=== PATIENT | female | born 1990 | race Caucasian/White ===

== ENCOUNTER 2020-06-01 17:16 | Emergency (ER) | payer SELFPAY ==
[~2020-06-01] VITALS: Ht 147.3 cm; Wt 52.2 kg
[2020-06-01] MEDS ORDERED: ONDANSETRON HCL INJ 2MG/ML 2ML 2 MG/ML VIAL IV STA (18:44)
[2020-06-01] MEDS ORDERED: PANTOPRAZOLE 40 MG 10ML VIAL IV STA (18:44)
[2020-06-01] MEDS ORDERED: SODIUM CHLORIDE 0.9% 1000ML 1,000 ML IV ONE (18:45)
--- NOTE | 2020-06-01 18:50 | Emergency Department Note ---
History of Present Illnes History of Present Illness Chief Complaint: Abdominal Complaints History of Present Illness This is a 30 year old female presents with c/o nausea, burping a lot, 2 episodes of diarrhea and headache starting about 3 hours ago, at this time states only symptoms still present is the burping, nausea, and upset stomach sensation. Historian: Patient Arrival Mode: Car Additional Treatment [employer]: [employer] Bath Attendant Required: No Onset (how long ago): hour(s) (3) Location: abd Quality: belching, diarrhea and vomiting Radiation: Reports non-radiation Severity: mild Onset quality: sudden Duration (how long): hour(s) (3) Progression: partially resolved Chronicity: new Context: Denies recent illness, Denies recent surgery, Denies trauma/injury Relieving factors: none Exacerbating factors: none Associated symptoms: Reports denies other symptoms Treatments prior to arrival: none Past Medical/Family History Physician Review I have reviewed the patient's past medical and family history. Any updates have been documented here. Past Medical History Recent Fever: No Clinical Suspicion of Infectio: No New/Unexplained Change in Ment: No Past Medical History: None Past Surgical History: None Social History Smoking Cessation: Never Smoker Alcohol Use: None Any Illegal Drug Use: No Family History Family history of heart diseas: No Review of Systems Review of Systems Constitutional: Reports no symptoms EENTM: Reports no symptoms Cardiovascular: Reports no symptoms Respiratory: Reports no symptoms Gastrointestinal: Reports as per HPI Genitourinary: Reports no symptoms Musculoskeletal: Reports no symptoms Integumentary: Reports no symptoms Psychological: Reports no symptoms Endocrine: Reports no symptoms Hematological/Lymphatic: Reports no symptoms Physical Exam Related Data Allergies: Coded Allergies: No Known Allergies (Unverified , 06/01/20) Triage Vital Signs Vital Signs Date Time Temp Pulse Resp B/P (MAP) Pulse Ox O2 Delivery O2 Flow Rate FiO2 06/01/20 17:24 98.8 68 18 123/61 98 Room Air Vital signs reviewed: Yes Physical Exam CONSTITUTIONAL Constitutional: Present well-developed, Present well-nourished; Absent distressed HENT HENT: Present normocephalic, Present atraumatic, Present oropharynx clear/moist, Present nose normal HENT L/R: Present left ext ear normal, Present right ext ear normal EYES Eyes: Reports PERRL, Reports conjunctivae normal NECK Neck: Present ROM normal PULMONARY Pulmonary: Present effort normal, Present breath sounds normal CARDIOVASCULAR Cardiovascular: Present regular rhythm, Present heart sounds normal, Present capillary refill normal, Present normal rate GASTROINTESTINAL Abdominal: Present soft, Present nontender, Present bowel sounds normal GENITOURINARY Genitourinary: Present exam deferred SKIN Skin: Present warm, Present dry MUSCULOSKELETAL Musculoskeletal: Present ROM normal NEUROLOGICAL Neurological: Present alert, Present oriented x 3, Present no gross motor or sensory deficits PSYCHOLOGICAL Psychological: Present mood/affect normal, Present judgement normal Results Laboratory Laboratory Laboratory Tests Test 06/01/20 19:02 06/01/20 17:35 White Blood Count 8.01 x10e3/uL (4.8-10.8) Red Blood Count 4.30 x10e6/uL (3.6-5.1) Hemoglobin 13.8 g/dL (12.0-16.0) Hematocrit 42.1 % (34.2-44.1) Mean Corpuscular Volume 97.9 fL (81-99) Mean Corpuscular Hemoglobin 32.1 pg (28-32) Mean Corpuscular Hemoglobin Concent 32.8 g/dL (31-35) Red Cell Distribution Width 13.2 % (11.7-14.4) Platelet Count 275 x10e3/uL (140-360) Neutrophils (%) (Auto) 52.8 % (38.7-80.0) Lymphocytes (%) (Auto) 38.6 % (18.0-39.1) Monocytes (%) (Auto) 6.5 % (4.4-11.3) Eosinophils (%) (Auto) 1.2 % (0.0-6.0) Basophils (%) (Auto) 0.7 % (0.0-1.0) Neutrophils # (Auto) 4.2 (2.1-6.9) Lymphocytes # (Auto) 3.1 (1.0-3.2) Monocytes # (Auto) 0.5 (0.2-0.8) Eosinophils # (Auto) 0.1 (0.0-0.4) Basophils # (Auto) 0.1 (0.0-0.1) Absolute Immature Granulocyte (auto 0.02 x10e3/uL (0-0.1) Sodium Level 139 mmol/L (136-145) Potassium Level 4.7 mmol/L (3.5-5.1) Chloride Level 106 mmol/L (98-107) Carbon Dioxide Level 18 mmol/L (22-29) Anion Gap 19.7 mmol/L (8-16) Blood Urea Nitrogen 11 mg/dL (7-26) Creatinine 0.79 mg/dL (0.57-1.11) Estimat Glomerular Filtration Rate > 60 ML/MIN (60-) BUN/Creatinine Ratio 14 (6-25) Glucose Level 80 mg/dL (74-118) Calcium Level 9.3 mg/dL (8.4-10.2) Total Bilirubin 0.2 mg/dL (0.2-1.2) Aspartate Amino Transf (AST/SGOT) 18 IU/L (5-34) Alanine Aminotransferase (ALT/SGPT) 13 IU/L (0-55) Alkaline Phosphatase 42 IU/L (40-150) Total Protein 7.9 g/dL (6.5-8.1) Albumin 4.8 g/dL (3.5-5.0) Globulin 3.1 g/dL (2.3-3.5) Albumin/Globulin Ratio 1.5 (0.8-2.0) Amylase Level 41 U/L (25-125) Lipase 16 U/L (8-78) Urine Color Yellow (YELLOW) Urine Clarity Clear (CLEAR) Urine pH 6.5 (5 - 7) Urine Specific Bryant 1.015 (1.010-1.025) Urine Protein Negative (NEGATIVE) Urine Glucose (UA) Negative (NEGATIVE) Urine Ketones Negative (NEGATIVE) Urine Blood Trace (NEGATIVE) Urine Nitrite Negative (NEGATIVE) Urine Bilirubin Negative (NEGATIVE) Urine Urobilinogen 0.2 mg/dL (0.2 - 1) Urine Leukocyte Esterase Negative (NEGATIVE) Urine RBC 0-5 /HPF (0-5) Urine WBC 0-5 /HPF (0-5) Urine Epithelial Cells Rare /LPF (NONE) Urine Bacteria Rare /HPF (NONE) Urine Test Negative (NEGATIVE) Lab results reviewed: Yes Assessment & Plan Medical Decision Making MDM pt with nausea, belching and diarrhea cbc, cmp, amylase, lipase, ua , preg test ordered to eval for uti, electrolyte abnormality, pancreatitis, elevated lft's protonix 40 mg iv ordered zofran 4 mg iv ordered ns 1 liter iv ordered Reassessment Reassessment time: 19:56 Reassessment PT FEELS BETTER TOLERATING PO Assessment & Plan Final Impression: (1) Nausea & vomiting Depart Disposition: HOME, SELF-CARE Last Vital Signs Date Time Temp Pulse Resp B/P (MAP) Pulse Ox O2 Delivery O2 Flow Rate FiO2 06/01/20 17:24 98.8 68 18 123/61 98 Room Air KONSTANTIN ESPARZA MD Jun 01, 2020 18:50
[2020-06-01 19:13] LABS: BASOPHILS # (AUTO) 0.1 (0.0-0.1); BASOPHILS % 0.7 % (0.0-1.0); EOSINOPHILS # (AUTO) 0.1 (0.0-0.4); EOSINOPHILS % 1.2 % (0.0-6.0); HEMATOCRIT 42.1 % (34.2-44.1); HEMOGLOBIN 13.8 g/dL (12.0-16.0); LYMPHOCYTES # (AUTO) 3.1 (1.0-3.2); LYMPHOCYTES % 38.6 % (18.0-39.1); MEAN CORPUSCULAR HEMOGLOBIN 32.1 pg (28-32); MEAN CORPUSCULAR HGB CONC 32.8 g/dL (31-35); MEAN CORPUSCULAR VOLUME 97.9 fL (81-99); MONOCYTES # (AUTO) 0.5 (0.2-0.8); MONOCYTES % 6.5 % (4.4-11.3); NEUTROPHILS # (AUTO) 4.2 (2.1-6.9); NEUTROPHILS % 52.8 % (38.7-80.0); PLATELET COUNT 275 x10e3/uL (140-360); RED CELL DISTRIBUTION WIDTH 13.2 % (11.7-14.4)
[2020-06-01 19:25] LABS: CLARITY,URINE CLEAR (CLEAR); COLOR,URINE YELLOW (YELLOW)
[2020-06-01 19:26] LABS: BILIRUBIN,URINE NEGATIVE (NEGATIVE); KETONES,URINE NEGATIVE (NEGATIVE); LEUKOCYTE ESTERASE ,URINE NEGATIVE (NEGATIVE); NITRITE,URINE NEGATIVE (NEGATIVE); PROTEIN,URINE DIPSTICK NEGATIVE (NEGATIVE); URINE UROBILINOGEN 0.2 mg/dL (0.2 - 1)
[2020-06-01 19:27] LABS: BACTERIA,URINE RARE /HPF; EPITHELIAL CELLS,URINE RARE /LPF; RBC,URINE 0-5 /HPF (0-5); WBC,URINE (MAN) 0-5 /HPF (0-5)
[2020-06-01 19:28] LABS: PREGNANCY TEST, URINE NEGATIVE (NEGATIVE)
[2020-06-01 19:32] LABS: ALANINE AMINOTRANSFERASE 13 IU/L (0-55); ALBUMIN 4.8 g/dL (3.5-5.0); ALBUMIN/GLOBULIN RATIO 1.5 (0.8-2.0); ALKALINE PHOSPHATASE 42 IU/L (40-150); ANION GAP 19.7 mmol/L (8-16); BLOOD UREA NITROGEN 11 mg/dL (7-26); BUN/CREATININE RATIO 14 (6-25); CALCIUM 9.3 mg/dL (8.4-10.2); CARBON DIOXIDE 18 mmol/L (22-29); CHLORIDE 106 mmol/L (98-107); CREATININE, SERUM 0.79 mg/dL (0.57-1.11); EST GLOMERULAR FILTRATION RATE > 60 ML/MIN (60-); GLUCOSE 80 mg/dL (74-118); POTASSIUM 4.7 mmol/L (3.5-5.1); SODIUM 139 mmol/L (136-145)
[2020-06-01 19:47] LABS: AMYLASE 41 U/L (25-125); LIPASE 16 U/L (8-78)
[2020-06-01 20:24] VITALS: BP 114/75
== END 2020-06-01 20:26 | disposition home or self-care (01) ==
LOC: ER 17:36
DX: R11.2 Nausea with vomiting, unspecified (principal); R14.2 Eructation; R19.7 Diarrhea, unspecified; R51 Headache
CPT/HCPCS: 36415; 80053; 81001; 81025; 82150; 83690; 85025; 99283; C9113; J2405; J7030